=== PATIENT | male | born 1940 | race Caucasian/White ===

== ENCOUNTER 2021-12-25 18:54 | Emergency (ER) | payer OTHER ==
[2021-12-25 19:13] VITALS: BP 139/82; PULSE 119; TEMP 98.8; BMI 32.9
[2021-12-25 20:59] LABS: BASO % 0.4 % (0-2.0); EOS % 0.1 % (0-4.5); HEMATOCRIT 45.5 % (35.4-49); HEMOGLOBIN 14.5 GM/dL (11.7-16.9); LYMPH % 9.4 % (8-40); MCH 24.2 pg (25.7-33.7); MCHC 31.8 g/dl (32.0-35.9); MEAN CELL VOLUME 76.1 fl (80-96); MEAN PLT VOLUME 7.9 fl (7.5-11.1); MONO % 6.4 % (3.8-10.2); NEUT % 83.7 % (42.8-82.8); PLATELET COUNT 324 10^3/uL (134-434); RBC 5.97 M/mm3 (4.00-5.60); RDW 17.7 % (11.9-15.9); WHITE BLOOD COUNT 12.6 K/mm3 (4.0-10.0)
[2021-12-25] MEDS ORDERED: LACTATED RINGERS SOLUTION 1000 ML INFUS.BAG IV ONE (21:01)
[2021-12-25 21:04] LABS: INR 1.12 (0.83-1.09); PROTHROMBIN TIME (PATIENT) 12.9 SEC (9.7-13.0)
[2021-12-25 21:19] LABS: CALCIUM 8.9 mg/dL (8.5-10.1)
[2021-12-25 21:20] LABS: ALBUMIN 3.8 g/dl (3.4-5.0); BLOOD UREA NITROGEN 12.6 mg/dL (7-18)
[2021-12-25 21:23] LABS: CREATININE 0.9 mg/dL (0.55-1.3)
[2021-12-25 21:24] LABS: BILIRUBIN,TOTAL 0.6 mg/dL (0.2-1); TOT PROT 7.9 g/dl (6.4-8.2)
[2021-12-25 22:42] LABS: CALCIUM 8.8 mg/dL (8.5-10.1)
[2021-12-25 22:43] LABS: BLOOD UREA NITROGEN 12.1 mg/dL (7-18)
[2021-12-25 22:45] LABS: CREATININE 0.8 mg/dL (0.55-1.3)
[2021-12-25 23:23] LABS: PH,URINE 6.5 (5.0-8.0); URINE APPEARANCE CLEAR; URINE BILIRUBIN NEGATIVE (NEGATIVE); URINE COLOR YELLOW; URINE GLUCOSE (UA) NEGATIVE (NEGATIVE); URINE KETONE NEGATIVE (NEGATIVE); URINE NITRITE NEGATIVE (NEGATIVE); URINE PROTEIN NEGATIVE (NEGATIVE); URINE UROBILINOGEN 0.2 mg/dL (0.2-1.0)
[2021-12-25 23:24] LABS: URINE LEUK ESTERASE NEGATIVE (NEGATIVE)
[2021-12-25] MEDS ORDERED: MECLIZINE HCL 25 MG TABLET (FP) PO ONE (23:36)
[2021-12-26] MEDS ORDERED: MECLIZINE HCL 25 MG TABLET (FP) ONE (00:16)
== END 2021-12-26 01:21 | disposition home or self-care (01) ==
LOC: JER 18:54
DX: R10.30 Lower abdominal pain, unspecified (principal); R11.0 Nausea; R42 Dizziness and giddiness
CPT/HCPCS: 36415; 74177-TC; 80048; 80053; 81003; 83605; 84484; 85025; 85610; 87086; 93005; 93010; 99285-25; Q9967